=== PATIENT | female | born 1935 | race Caucasian/White ===

== ENCOUNTER 2017-07-08 13:06 | Emergency (ER) | payer MEDICARE, OTHER ==
[2017-07-08 15:02] VITALS: TEMP 101
--- NOTE | 2017-07-08 15:23 | ED.PDOC ---
History of Present Illness - General Chief Complaint: Respiratory Problem Stated Complaint: fever, cough Time Seen by Provider: 07/08/17 15:17 Exam Limitations: no limitations Additional Information: COUGH AND FEVER FOR 3 DAYS. - History of Present Illness Timing/Duration: other - 3 DAYS Severity: moderate Improving Factors: nothing Worsening Factors: nothing Home Medications: Ambulatory Orders Amoxicillin & Pot Clavulanate [Augmentin] 1 tab PO BID #20 tab 07/08/17 Review of Systems - Review of Systems Constitutional: States: chills, fever EENTM: States: no symptoms reported Respiratory: States: cough. Denies: short of breath, wheezing Cardiology: Denies: chest pain, palpitations, syncope Gastrointestinal/Abdominal: Denies: nausea, vomiting Genitourinary: States: no symptoms reported Musculoskeletal: States: no symptoms reported Skin: States: no symptoms reported Neurological: States: no symptoms reported Endocrine: States: no symptoms reported Hematologic/Lymphatic: States: no symptoms reported Past Medical History (General) - Patient Medical History Hx Seizures: No Hx Stroke: No Hx Dementia: No Hx Asthma: Yes Hx of COPD: No Hx Cardiac Disorders: Yes - Murmur, HTN Hx Congestive Heart Failure: Yes Hx Pacemaker: No Hx Hypertension: Yes Hx Thyroid Disease: No Hx Diabetes: No Hx Gastroesophageal Reflux: Yes Hx Renal Disease: No Hx Cancer: No Hx of HIV: No Hx Hepatitis C: No Hx MRSA: No - Vaccination History Hx Influenza Vaccination: No Hx Pneumococcal Vaccination: No - Social History Hx Tobacco Use: No Hx Alcohol Use: No Hx Substance Use: No Hx Substance Use Treatment: No Hx Depression: No Feels Threatened In Home Enviroment: No Feels Threatened In a Relationship: No Hx Physical Abuse: No Hx Emotional Abuse: No Hx Suspected Abuse: No - Female History Patient is a Female of Child Bearing Age (10 -59 yrs old): No Family Medical History - Family History Father Age (years): 45 Living Status: Hx Cardiac Disease: Yes Physical Exam - Physical Exam General Appearance: Alert, No apparent distress Eye Exam: bilateral normal Ears, Nose, Throat: hearing grossly normal, normal ENT inspection Neck: non-tender, full range of motion, normal inspection Respiratory: lungs clear, normal breath sounds Cardiovascular/Chest: regular rate, rhythm, no murmur Gastrointestinal/Abdominal: normal bowel sounds, non tender, soft, no organomegaly Back Exam: normal inspection, no CVA tenderness Extremity: normal range of motion, non-tender Neurologic: alert, normal mood/affect Skin Exam: normal color, warm/dry Lymphatic: no adenopathy Progress - Progress Progress: 07/08/17 17:48 PT REFUSES BLOOD DRAW, WANTS A SHOT AND GO HOME. - EKG/XRAY/CT XRAY: chest - LLL INFILTRATE CT Ordered: No CT Interpretation Call Back: No Departure - Departure Clinical Impression: Pneumonia Qualifiers: Pneumonia type: due to unspecified organism Laterality: left Lung location: lower lobe of lung Qualified Code(s): J18.1 - Lobar pneumonia, unspecified organism Time of Disposition: 17:51 Disposition: Discharge to Home or Self Care Condition: Fair Departure Forms: ED Discharge - Pt. Copy, Patient Portal Self Enrollment Instructions: DI for Pneumonia -- Adult Prescriptions: Amoxicillin & Pot Clavulanate [Augmentin] 1 tab PO BID #20 tab Home Medications: Ambulatory Orders Amoxicillin & Pot Clavulanate [Augmentin] 1 tab PO BID #20 tab 07/08/17
--- NOTE | 2017-07-08 15:50 | RAD ---
Procedure: XR CHEST 2 VIEWS Exam Date: 07/08/2017 3:25 PM [facility] Ordering Provider: Endy Shirley Clinical Indication: COUGH/FEVER Comparison: None Findings: The lungs are clear and well-aerated. No pleural effusion or pneumothorax. Cardiac silhouette is enlarged. 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 Impression: No acute pulmonary process. Cardiomegaly and previous CABG surgery. Electronically signed by: Wiley Blanco MD 07/08/2017 3:49 PM [facility]
[2017-07-08] MEDS ORDERED: cefTRIAXone SODIUM 1 GM VIAL ONE (17:45)
[2017-07-08] MEDS ORDERED: LIDOCAINE 1% 10 ML VIAL INJ ONE (17:47)
[2017-07-08] MEDS: cefTRIAXone SODIUM 1 GM VIAL IM ONE (18:03)
[2017-07-08 19:33] VITALS: BP 188/94; O2SAT 95
== END 2017-07-08 16:30 | disposition home or self-care (01) ==
LOC: ER 13:06
DX: J18.1 Lobar pneumonia, unspecified organism (principal); I10 Essential (primary) hypertension
CPT/HCPCS: 71020; J0696